=== PATIENT | female | born 1960 | race Caucasian/White ===

== ENCOUNTER 2018-01-20 14:56 | Emergency (ER) | payer OTHER ==
[~2018-01-20] VITALS: Ht 172.7 cm; Wt 83.9 kg
--- NOTE | 2018-01-20 15:11 | NUR ---
PT AMBULATES TO BED 8
--- NOTE | 2018-01-20 15:15 | NUR ---
Note undone in EDM - 01/20/18 at 1608 by [email or web address] 58/F REFERRED BY DR ITZ SCHWARTZ WITH C/O NAUSEA , BL LOWER LEG PAIN GREATER ON THE LT FOR DVT X 3 DAYS. HX; ANXIETY, DPERESSION. DENIES V/D; SKIN IS PINK/WARM/DRY; AAOX4 WITH UNSTEADY GAIT AMB WITH CANE; LUNGS CLEAR BL; PT DENIES ANY FEVER, CP, SOB, OR COUGH AT THIS TIME; PATIENT STATES PAIN OF 4/10 AT THIS TIME; PATIENT POSITIONED FOR COMFORT; HOB ELEVATED; BEDRAILS UP X2; BED DOWN. ER MD MADE AWARE OF PT STATUS.
[2018-01-20 15:22] VITALS: BP 133/91
--- NOTE | 2018-01-20 15:44 | NUR ---
US AT BEDSIDE
--- NOTE | 2018-01-20 16:09 | NUR ---
Patient being evaluated by DR COPE at bedside.
[2018-01-20] MEDS ORDERED: MORPHINE SULFATE 4 MG/ML SYR IM ONE (16:20)
--- NOTE | 2018-01-20 16:38 | NUR ---
Patient discharged with v/s stable. Written and verbal after care instructions given and explained. Patient alert, oriented and verbalized understanding of instructions. Ambulatory with UNsteady gait. All questions addressed prior to discharge. ID band removed. Patient advised to follow up with PMD. Rx of NORCO given. Patient educated on indication of medication including possible reaction and side effects. Opportunity to ask questions provided and answered.
[2018-01-20 16:39] VITALS: BP 127/84
== END 2018-01-20 16:38 | disposition home or self-care (01) ==
LOC: MED 14:56
DX: M71.22 Synovial cyst of popliteal space [Baker], left knee (principal)
CPT/HCPCS: 93971; 96372; 99284; J2270; Q0092